=== PATIENT | female | born 1985 | race Caucasian/White ===

== ENCOUNTER → 2025-06-20 | Outpatient (CLI) | payer MEDICAID, SELFPAY ==
--- NOTE | 2025-06-20 15:58 | US_ITS ---
PROCEDURE: US/Pelvic w/ Transvaginal
== END | disposition home or self-care (01) ==
LOC: US 15:57
PROVIDERS: PCP Nurse Practitioner Family; Referring Provider Nurse Practitioner Family; Visit Provider Nurse Practitioner Family
DX: R10.31 Right lower quadrant pain (principal)
CPT/HCPCS: 76830; 76856

== ENCOUNTER → 2025-06-27 | Outpatient (CLI) | payer MEDICAID, SELFPAY ==
--- NOTE | 2025-06-27 10:04 | US_ITS ---
PROCEDURE: ABDOMEN COMPLETE 06/27/2025 REASON FOR EXAM: RLQ PAIN TECHNIQUE: Procedure Code: USABDC Modality: US Procedure: ABDOMEN COMPLETE COMPARISON: None FINDINGS: Liver: Diffusely echogenic suggesting fatty infiltration. Borderline hepatomegaly. The liver measures 17.3 cm. Gallbladder: No stones sludge wall thickening or tenderness. Common bile duct: Normal measuring 4.6 mm. . Pancreas: Normal Kidneys: The right kidney measures 10.3 cm 5 cm 5.1 cm. Renal cortex measures 1 cm.. The left kidney measures 11.3 cm x 5.7 cm 4.7 cm. The left renal cortex measures 1 cm.. Spleen: Normal in size and echotexture measuring the spleen measures 13.9 cm 4.1 cm 3.7 cm. . Aorta: Visualized abdominal aorta is of normal size. IVC: Visualized inferior vena cava is unremarkable. Peritoneal Findings: No ascites identified. US/Abdomen Complete IMPRESSION: Diffuse fatty infiltration of the liver. Borderline hepatomegaly. Reading Location: [place] [id number]
== END | disposition home or self-care (01) ==
LOC: US 10:02
PROVIDERS: PCP Nurse Practitioner Family; Referring Provider Nurse Practitioner Family; Visit Provider Nurse Practitioner Family
DX: R10.31 Right lower quadrant pain (principal)
CPT/HCPCS: 76700